=== PATIENT | male | born 1970 | race American Indian/Alaskan Native ===

== ENCOUNTER 2021-01-11 22:26 | Emergency (ER) | payer OTHER ==
[2021-01-12] MEDS ORDERED: dexAMETHasone 20 MG/5 ML VIAL IV ONE (04:37)
[2021-01-12] MEDS ORDERED: MORPHINE 4 MG/1 ML INJ IV ONE (04:37)
[2021-01-12] MEDS ORDERED: SODIUM CHLORIDE 0.9% 1000 ML 1,000 ML IV ONE (04:37)
[2021-01-12 05:00] LABS: Basophils % (Auto) 0.3 % (0.0-1.8); Eosinophils % (Auto) 0.1 % (0.0-4.3); Hematocrit 44.7 % (35.5-45.6); Hemoglobin 15.1 gm/dl (11.8-15.2); Lymphocytes # (Auto) 0.5 K/mm3 (1.2-5.4); Lymphocytes % (Auto) 4.2 % (13.4-35.0); Mean Corpuscular HGB Conc 34 % (32-34); Mean Corpuscular Volume 91 fl (84-94); Monocytes # (Auto) 1.2 K/mm3 (0.0-0.8); Monocytes % (Auto) 9.5 % (0.0-7.3); Platelet Count 174 K/mm3 (140-440); Red Cell Distribution Width 14.2 % (13.2-15.2)
[2021-01-12 05:17] LABS: BUN/Creatinine Ratio 10; Blood Urea Nitrogen 8 mg/dL (9-20); Calcium 8.7 mg/dL (8.4-10.2); Hemolysis Index 892
--- NOTE | 2021-01-12 06:29 | Emergency Department Report ---
ED ENT HPI - General Chief complaint: Dental/Oral Stated complaint: SWOLLEN FACE/ABSCESS Time Seen by Provider: 01/12/21 04:35 Source: patient Mode of arrival: Ambulatory Limitations: No Limitations - History of Present Illness Initial comments: Patient is a 50-year-old male who presents with dental abscess x3 days. Patient has history of same, states facial swelling for the past 2 days. Pain is described as 7/10, exacerbated by palpation and movement. Patient is tolerating p.o. intake however. There is been no fevers or chills, no headaches or d izziness, no ear pain, no throat pain. Patient has been unable to see dentist. Patient remains alert oriented x3 amatory with steady gait drove self to ED tonight. complaint: tooth pain - Related Data Previous Rx's Medication Instructions Recorded Last Taken Type Chlorhexidine Mouthwash [Peridex] 15 ml MM BID #1 bottle 01/12/21 Unknown Rx Clindamycin [Clindamycin CAP] 300 mg PO Q6H 7 Days #28 capsule 01/12/21 Unknown Rx amLODIPine 5 mg PO DAILY #30 tab 01/12/21 Unknown Rx traMADoL [Ultram] 50 mg PO Q6HR PRN #12 tablet 01/12/21 Unknown Rx Allergies Allergy/AdvReac Type Severity Reaction Status Date / Time shellfish derived Allergy Anaphylaxis Verified 01/11/21 23:15 ED Dental HPI - General Chief complaint: Dental/Oral Stated complaint: SWOLLEN FACE/ABSCESS Time Seen by Provider: 01/12/21 04:35 Source: patient Mode of arrival: Ambulatory Limitations: No Limitations - Related Data Previous Rx's Medication Instructions Recorded Last Taken Type Chlorhexidine Mouthwash [Peridex] 15 ml MM BID #1 bottle 01/12/21 Unknown Rx Clindamycin [Clindamycin CAP] 300 mg PO Q6H 7 Days #28 capsule 01/12/21 Unknown Rx amLODIPine 5 mg PO DAILY #30 tab 01/12/21 Unknown Rx traMADoL [Ultram] 50 mg PO Q6HR PRN #12 tablet 01/12/21 Unknown Rx Allergies Allergy/AdvReac Type Severity Reaction Status Date / Time shellfish derived Allergy Anaphylaxis Verified 01/11/21 23:15 ED Review of Systems ROS: Stated complaint: SWOLLEN FACE/ABSCESS Other details as noted in HPI Constitutional: denies: chills, fever Eyes: denies: eye pain, eye discharge, vision change ENT: dental pain, other (left check swelling ) Respiratory: denies: cough, shortness of breath, wheezing Cardiovascular: denies: chest pain, palpitations Endocrine: no symptoms reported Gastrointestinal: denies: abdominal pain, nausea, vomiting, diarrhea Genitourinary: denies: urgency, dysuria Musculoskeletal: denies: back pain, joint swelling, arthralgia Skin: denies: rash, lesions Neurological: denies: headache, weakness, paresthesias Psychiatric: denies: anxiety, depression Hematological/Lymphatic: denies: easy bleeding, easy bruising ED Past Medical Hx - Past Medical History Hx Hypertension: Yes - Surgical History Past Surgical History?: No - Social History Smoking Status: Never Smoker Substance Use Type: Alcohol - Medications Home Medications: Home Medications Medication Instructions Recorded Confirmed Last Taken Type Chlorhexidine Mouthwash [Peridex] 15 ml MM BID #1 bottle 01/12/21 Unknown Rx Clindamycin [Clindamycin CAP] 300 mg PO Q6H 7 Days #28 capsule 01/12/21 Unknown Rx amLODIPine 5 mg PO DAILY #30 tab 01/12/21 Unknown Rx traMADoL [Ultram] 50 mg PO Q6HR PRN #12 tablet 01/12/21 Unknown Rx ED Physical Exam - General Limitations: No Limitations General appearance: alert, in no apparent distress - Head Head exam: Present: normocephalic, normal inspection - Eye Eye exam: Present: normal appearance, PERRL, EOMI. Absent: periorbital swelling, periorbital tenderness Pupils: Present: normal accommodation - ENT ENT exam: Present: mucous membranes moist, TM's normal bilaterally, normal external ear exam - Expanded ENT Exam Expanded Ear exam: Present: normal external inspection Mouth exam: Present: tongue normal. Absent: trismus, tongue elevation Teeth exam: Present: dental caries, dental tenderness # (13 ), other (abcess no drainage mild gum erythema swelling, facial swelling ) Throat exam: Positive: normal inspection, other (uvula midline no stridor ). Negative: tonsillar erythema, tonsillomegaly, tonsillar exudate, R peritonsillar mass, L peritonsillar mass - Neck Neck exam: Present: normal inspection, full ROM, lymphadenopathy. Absent: tenderness, meningismus, thyromegaly - Expanded Neck Exam Expanded Neck exam: Absent: tenderness, midline deformity, anterior neck swelling, thyroid mass, carotid bruit, tracheal deviation - Respiratory Respiratory exam: Present: normal lung sounds bilaterally. Absent: respiratory distress, wheezes, stridor - Cardiovascular Cardiovascular Exam: Present: regular rate, normal rhythm, normal heart sounds. Absent: systolic murmur, diastolic murmur, rubs, gallop - GI/Abdominal GI/Abdominal exam: Present: soft, normal bowel sounds. Absent: distended, tenderness - Rectal Rectal exam: Present: deferred - Extremities Exam Extremities exam: Present: normal inspection, full ROM. Absent: tenderness - Back Exam Back exam: Present: normal inspection, full ROM. Absent: tenderness - Neurological Exam Neurological exam: Present: alert, oriented X3, CN II-XII intact, normal gait - Expanded Neurological Exam Expanded Patient oriented to: Present: person, place, time Speech: Present: fluid speech Cranial nerves: EOM's Intact: Normal, Gag Reflex: Normal, Facial Sensation: Normal Best Eye Response (Francis): (4) open spontaneously Best Motor Response (Nisa): (6) obeys commands Best Verbal Response (Nisa): (5) oriented Nisa Total: 15 - Psychiatric Psychiatric exam: Present: normal affect, normal mood - Skin Skin exam: Present: warm, dry, intact, normal color. Absent: rash ED Medical Decision Making - Lab Data Result diagrams: 01/12/21 04:46 01/12/21 06:20 Labs 01/12/21 01/12/21 04:46 04:46 WBC 12.5 H RBC 4.90 Hgb 15.1 Hct 44.7 MCV 91 MCH 31 MCHC 34 RDW 14.2 Plt Count 174 Lymph % (Auto) 4.2 L [place] % (Auto) 9.5 H Eos % (Auto) 0.1 Baso % (Auto) 0.3 Lymph # (Auto) 0.5 L [place] # (Auto) 1.2 H Eos # (Auto) 0.0 Baso # (Auto) 0.0 Seg Neutrophils % 85.9 H Seg Neutrophils # 10.7 H Sodium 128 L Potassium TNR Chloride 92.8 L Carbon Dioxide 25 Anion Gap TNR BUN 8 L Creatinine 0.8 Estimated GFR > 60 BUN/Creatinine Ratio 10 Glucose 107 H Calcium 8.7 - Radiology Data Radiology results: report reviewed, image reviewed Patient: ROMEO TIWARI MR#: [id number] : 1970 Acct:[id number] Age/Sex: 50 / M ADM Date: 01/11/21 Loc: ED Attending Dr: Ordering Physician: DAPHNE VOGT NP Date of Service: 01/12/21 Procedure(s): CT facial bones w con Accession Number(s): [id number] cc: DAPHNE VOGT NP CT MAXILLOFACIAL WITH INTRAVENOUS CONTRAST INDICATION / CLINICAL INFORMATION: dental abscess. Facial pain and swelling. TECHNIQUE: All CT scans at this location are performed using CT dose reduction for ALARA by means of automated exposure control. Contrast dose report: Omnipaque 300: 100 mL administered intravenously. COMPARISON: None available. FINDINGS: Multiple abnormalities are identified on this complex examination. History provided is "dental abscess". A large periapical abscess is present at the root of tooth #19 (left mandibular first molar). A large dental caries is identified at 2 #18 (left mandibular second molar). There is periapical lucency at the root of tooth #18 also consistent with periapical abscess. There is disruption of the buccal cortex of the body of the mandible in this region. This is the site of the patient's odontogenic infection. There is evidence of a subperiosteal abscess along the buccal surface of the body of the left mandible in this location. There is extensive infiltrative change and soft tissue swelling involving the left masseter muscle and soft tissues of the left cheek. Separate from the odontogenic infection an additional, more unusual, abnormality is observed involving the left maxillary sinus. There is marked expansion of the left maxillary sinus with bone remodeling and bony dehiscence along the inferior lateral wall of the left maxilla. An ectopic tooth is seen along the medial aspect of this lesion located just above the level of the left inferior nasal turbinate. This expansile lesion is a huge odontogenic keratocyst. There is medial bowing of the medial wall of the left maxillary sinus which encroaches upon the nasal cavity. This results in compression and displacement of the of the middle turbinate and blockage of the air passageways of the OM U resulting in complete opacification of ethmoid air cells, complete opacification of the left frontal sinus and subt otal opacification of the left sphenoid sinus. Abnormal mucoid material extends through the dehiscent portion of the anterior medial wall of the maxilla just above the superior alveolar ridge. This extends out into the soft tissues of the cheek producing mass effect in this region. This lesion accounts for some of the soft tissue swelling along the more anterior superior aspect of the cheek near the expected location of the nasolabial fold. This expansile lesion extends posteriorly through the medial and lateral pterygoid plates below the level of the pterygopalatine fossa where it may involve the medial pterygoid muscle. A small odontogenic keratocyst is demonstrated at the base of the right maxillary sinus. IMPRESSION: 1. Odontogenic infection centered at the root of teeth #18 and 19 as described above. There is a associated subperiosteal abscess and extensive cellulitic changes involving the masseter muscle and adjacent cheek. 2. Huge left maxillary odontogenic keratocyst as described in detail above. 3. Incidental note is made of a small right-sided odontogenic keratocyst. Note: I was consulted on this case by Dr. Grimm at about 0506 hours. IMPORTANT FINDING: Time of Communication (CARGO SERVICES COORDINATOR/CDT): 0550 hours Central standard time Licensed Practitioner Receiving Report: Dr. Vogt of the [facility] emergency department. Signer Name: Jose Nelson MD Signed: 01/12/2021 6:59 AM Workstation Name: [id number] Transcribed By: Dictated By: Jose Nelson MD Electronically Authenticated By: Jose Nelson MD Signed Date/Time: 01/12/21658 DD/ 5 TD/TT: - Medical Decision Making CT scan facial bones: dental abscess, dontogenic keratocyst there is a dental abscess, symptoms are improved with medications given in ED. There is no trismus, patient advises pain is relieved, patient is tolerating p.o. intake without pain at this time, plan patient will follow-up with [facility] at [place], will follow-up with dentist, will return to emergency department should symptoms worsen, patient will be DC'd to home with prescriptions. Patient verbalizes agreement and understanding with discharge plan. Patient DC'd home in stable condition at this time. Critical care attestation.: If time is entered above; I have spent that time in minutes in the direct care of this critically ill patient, excluding procedure time. ED Disposition Clinical Impression: Odontogenic keratocyst, Dental abscess Disposition: DC-01 TO HOME OR SELFCARE Is pt being admited?: No Does the pt Need Aspirin: No Condition: Stable Instructions: Dental Abscess, [id number] Additional Instructions: follow up with [facility] , Follow up with your dentist in 1-2 days, take all medications as prescribed, return to emergency if symptoms worsen. Prescriptions: amLODIPine 5 mg PO DAILY #30 tab Clindamycin [Clindamycin CAP] 300 mg PO Q6H 7 Days #28 capsule Chlorhexidine Mouthwash [Peridex] 15 ml MM BID #1 bottle traMADoL [Ultram] 50 mg PO Q6HR PRN #12 tablet PRN Reason: Pain Referrals: [facility] [Outside] - 3-5 Days [facility] [Outside] - 3-5 Days [facility] [Outside] - 3-5 Days OTIS ALLEN MD [Staff Physician] - 3-5 Days Forms: Work/School Release Form(ED) Time of Disposition: 07:06
[2021-01-12 06:33] LABS: BUN/Creatinine Ratio 10; Blood Urea Nitrogen 8 mg/dL (9-20); Calcium 8.8 mg/dL (8.4-10.2); Hemolysis Index 13
[2021-01-12] MEDS ORDERED: hydrALAZINE 25 MG TAB PO ONE (06:59)
--- NOTE | 2021-01-12 07:03 | Cat Scan Report ---
CT MAXILLOFACIAL WITH INTRAVENOUS CONTRAST INDICATION / CLINICAL INFORMATION: dental abscess. Facial pain and swelling. TECHNIQUE: All CT scans at this location are performed using CT dose reduction for ALARA by means of automated e xposure control. Contrast dose report: Omnipaque 300: 100 mL administered intravenously. COMPARISON: None available. FINDINGS: Multiple abnormalities are identified on this complex examination. History provided is "dental abscess". A large periapical abscess is present at the root of tooth #19 (left mandibular first molar). A large dental caries is identified at 2 #18 (left mandibular second m olar). There is periapical lucency at the root of tooth #18 also consistent with periapical abscess. There is disruption of the buccal cortex of the body of the mandible in this region. This is the site of the patient's odontogenic infection. There is evidence of a subperiosteal abscess along the bucca l surface of the body of the left mandible in this location. There is extensive infiltrative change a nd soft tissue swelling involving the left masseter muscle and soft tissues of the left cheek. Separate from the odontogenic infection an additional, more unusual, abnormality is observed involvin g the left maxillary sinus. There is marked expansion of the left maxillary sinus with bone remodelin g and bony dehiscence along the inferior lateral wall of the left maxilla. An ectopic tooth is seen a long the medial aspect of this lesion located just above the level of the left inferior nasal turbina te. This expansile lesion is a huge odontogenic keratocyst. There is medial bowing of the medial wall of the left maxillary sinus which encroaches upon the nasal cavity. This results in compression and displacement of the of the middle turbinate and blockage of the air passageways of the OM U resulting in complete opacification of ethmoid air cells, complete opacification of the left frontal sinus and subtotal opacification of the left sphenoid sinus. Abnormal mucoid material extends through the dehi scent portion of the anterior medial wall of the maxilla just above the superior alveolar ridge. This extends out into the soft tissues of the cheek producing mass effect in this region. This lesion acc ounts for some of the soft tissue swelling along the more anterior superior aspect of the cheek near the expected location of the nasolabial fold. This expansile lesion extends posteriorly through the m edial and lateral pterygoid plates below the level of the pterygopalatine fossa where it may involve the medial pterygoid muscle. A small odontogenic keratocyst is demonstrated at the base of the right maxillary sinus. IMPRESSION: 1. Odontogenic infection centered at the root of teeth #18 and 19 as described above. There is a as sociated subperiosteal abscess and extensive cellulitic changes involving the masseter muscle and adj acent cheek. 2. Huge left maxillary odontogenic keratocyst as described in detail above. 3. Incidental note is made of a small right-sided odontogenic keratocyst. Note: I was consulted on this case by Dr. Grimm at about 0506 hours. IMPORTANT FINDING: Time of Communication (SUPERVISOR MOLD CLEANING AND STORAGE/CDT): 0550 hours Central standard time Licensed Practitioner Receiving Report: Dr. Vogt of the [facility] emergenc y department. Signer Name: Jose Nelson MD Signed: 01/12/2021 6:59 AM Workstation Name: [id number]
[2021-01-12 08:01] VITALS: BP 173/102
== END 2021-01-12 08:01 | disposition home or self-care (01) ==
LOC: ED 22:26
DX: D16.5 Benign neoplasm of lower jaw bone (principal); K04.7 Periapical abscess without sinus; I10 Essential (primary) hypertension; Z79.899 Other long term (current) drug therapy; Z91.013 Allergy to seafood
CPT/HCPCS: 36415; 70487; 80048; 85025; 96365; 96375; 99284; J1100; J2270; J7030; Q9967